=== PATIENT | male | born 1980 | race Hispanic/Latino ===

== ENCOUNTER → 2022-12-29 | Day surgery (SDC) | payer MEDICARE ==
[2022-12-28 11:45] LABS: BASOPHILS % 0.6 % (0.0-1.0); EOSINOPHILS # (AUTO) 0.2 (0.0-0.4); EOSINOPHILS % 3.4 % (0.0-6.0); HEMATOCRIT 42.7 % (38.2-49.6); LYMPHOCYTES # (AUTO) 2.7 (1.0-3.2); LYMPHOCYTES % 42.9 % (18.0-39.1); MEAN CORPUSCULAR HEMOGLOBIN 30.5 pg (28-32); MEAN CORPUSCULAR HGB CONC 35.1 g/dL (31-35); MEAN CORPUSCULAR VOLUME 86.8 fL (81-99); MONOCYTES # (AUTO) 0.4 (0.2-0.8); NEUTROPHILS # (AUTO) 2.9 (2.1-6.9); NEUTROPHILS % 46.1 % (38.7-80.0); PLATELET COUNT 216 x10e3/uL (140-360); RED BLOOD COUNT 4.92 x10e6/uL (4.3-5.7); RED CELL DISTRIBUTION WIDTH 12.2 % (11.7-14.4); WHITE BLOOD COUNT 6.25 x10e3/uL (4.8-10.8)
[2022-12-28 12:03] LABS: ALBUMIN 4.2 g/dL (3.5-5.0); ALBUMIN/GLOBULIN RATIO 1.1 (0.8-2.0); CALCIUM 9.9 mg/dL (8.4-10.2); CREATININE, SERUM 1.06 mg/dL (0.72-1.25)
[~2022-12-29] MED LIST: ATORVASTATIN CA20 MG PO; BUPIVACAINE 0.25% 30ML SDV ONE; DEXAMETHASONE SOD PHOS INJ 4 MG/ML SDV ONE; EPHEDRINE SULFATE INJ 50 MG/ML VIAL ONE; ESMOLOL HCL 100MG/10ML 10 MG/ML VIAL ONE; FENTANYL CITRATE/PF 100MCG/2 ML INJ ONE; GLYCOPYRROLATE INJ 0.2 MG/ML VIAL ONE; KETOROLAC TROMETHAMINE 30 MG/ML VIAL ONE; LACTATED RINGER'S 1,000 ML ONE; LIDOCAINE HCL 2% LOCAL INJ 5 ML SDV VIAL INJ ONE; LOSARTAN POTASS25 MG PO; MIDAZOLAM HCL 2 MG/2 ML VIAL ONE; ONDANSETRON HCL INJ 2MG/ML 2ML 2 MG/ML VIAL ONE; PHENYLEPHRINE HCL 1% 10 MG/ML VIAL ONE; PROPOFOL IV EMULSION 10 MG/ML 20 ML VIAL ONE; ROCURONIUM BROMIDE 10 MG/ML 5ML VIAL IV ONE; SEVOFLURANE INHAL SOLN 250 ML PEN BTL ONE; TRIAMTERENE-HCTZ1 EA PO
[2022-12-29 11:30] VITALS: BP 120/74; PULSE 87; RESP 16; O2SAT 97
== END | disposition home or self-care (01) ==
LOC: OR 06:26
PROVIDERS: ATTEND Surgery
DX: K80.10 Calculus of gallbladder with chronic cholecystitis without obstruction (principal); I10 Essential (primary) hypertension; E78.5 Hyperlipidemia, unspecified; K76.0 Fatty (change of) liver, not elsewhere classified; Z01.810 Encounter for preprocedural cardiovascular examination; Z01.812 Encounter for preprocedural laboratory examination; Z79.899 Other long term (current) drug therapy
CPT/HCPCS: 36415; 47562; 80053; 85025; 88304; 93005; C1766; J1100; J1885; J2001; J2250; J2371; J2405; J2704; J3010; J7121